=== PATIENT | male | born 1995 | race African-American/Black ===

== ENCOUNTER 2022-01-01 22:40 | Emergency (ER) | payer BC, SELFPAY ==
[2022-01-01 22:46] VITALS: BP 145/84; PULSE 109; RESP 18; TEMP 37.2; O2SAT 100
--- NOTE | 2022-01-01 23:10 | ED.DENTAL ---
HPI - Dental/Oral General Chief complaint: Dental/Oral Stated complaint: throat Time Seen by Provider: 01/01/22 22:56 History of Present Illness HPI Narrative: Patient reports ports sore throat for 3 days. Denies fever. States having difficulty eating and drinking due to the pain. No known ill contacts. Denies sinus congestion, postnasal drip, cough, or earache. Related Data Allergies Allergy/AdvReac Type Severity Reaction Status Date / Time No Known Drug Allergies Allergy Unknown Other Verified 01/01/22 22:49 Review of Systems Review of Systems: CONSTITUTIONAL: Denies fever, chills, or sweats. EYES: Denies visual changes, redness, or discharge. ENT: reports sore throat CARDIOVASCULAR: Denies chest pain, palpitations, or edema. RESPIRATORY: Denies cough or dyspnea. GASTROINTESTINAL: Denies abdominal pain, nausea, vomiting, or diarrhea. GENITOURINARY: Denies dysuria or hematuria. SKIN: Denies rash or itching. MUSCULOSKELETAL: Denies back pain, joint pain, or myalgia. NEUROLOGIC: Denies headache, numbness, dizziness, or weakness. PSYCHIATRIC: Denies anxiety or depression. Exam Narrative: GENERAL: Well-appearing, well-nourished, and in no acute distress. HEAD: Normocephalic, atraumatic. EYES: PERRLA and EOMI. ENT: Nares clear, no rhinorrhea or epistaxis. Mucous membranes moist. Bilateral TMs pearly larsen nonbulging. Tonsillar columns +4, erythematous, swollen, with white purulent discharge NECK: Supple. Anterior cervical lymphadenopathy. No carotid bruits or JVD CHEST: Clear to auscultation. No respiratory distress. No wheezes rales or rhonchi HEART: Regular rate and rhythm. No murmur heard. Normal peripheral pulses. ABDOMEN: Soft, nontender, nondistended, normal active bowel sounds. EXTREMITIES: Normal range of motion. No edema. SKIN: Warm, dry, no rash. NEURO: No focal deficits. Alert and oriented x3. PSYCH: Normal mood and affect. Course Vital Signs Vital signs: Vital Signs Temperature 37.2 C 01/01/22 22:46 Pulse Rate 109 H 01/01/22 22:46 Respiratory Rate 18 01/01/22 22:46 Blood Pressure 145/84 H 01/01/22 22:46 Pulse Oximetry 100 01/01/22 22:46 Temperature 37.2 C 01/01/22 22:46 Pulse Rate 109 H 01/01/22 22:46 Respiratory Rate 18 01/01/22 22:46 Blood Pressure 145/84 H 01/01/22 22:46 Pulse Oximetry 100 01/01/22 22:46 MDM - Dental/Oral MDM Narrative Medical decision making narrative: 27-year-old male presented to the emergency room with sore throat for 3 days. Strep test shows positive for group A strep. Lab Data Labs: Lab Results 01/01/22 Range/Units 23:58 Monoscreen Pending Strep Screen Positive Group A Strep *(Reference Range: Negative)* Discharge Plan Discharge Clinical Impression: Strep sore throat Patient Disposition: Home, Self-Care Condition: Stable Instructions: Antibiotic Form Prescriptions: New amoxicillin 500 mg tablet 500 mg PO Q12H Qty: 20 RF: 0 Follow-up/Referrals: PHYSICIAN NOT ON STAFF,NONSTAFF [Primary Care Provider] - Stand Alone Forms: Work/School Release IP Time of Disposition: 00:38
[2022-01-02] MEDS: KETOROLAC (*BKC) 60 MG/2 ML VIAL IM (00:04)
[2022-01-02 00:46] LABS: Monoscreen Negative (Negative)
[2022-01-02 00:47] LABS: Negative Monotest Control Negative (Negative); Positive Monotest Control Positive (Positive)
[2022-01-02 01:00] VITALS: PULSE 100; RESP 18; O2SAT 98
== END 2022-01-02 01:00 | disposition home or self-care (01) ==
PROVIDERS: Emergency Provider Nurse Practitioner Family
DX: J02.0 Streptococcal pharyngitis (principal)
CPT/HCPCS: 36415; 86308; 87880; 96372; 99284; J1100; J1885

== ENCOUNTER 2022-08-21 01:02 | Emergency (ER) | payer BC, SELFPAY ==
[2022-08-21] VITALS (8 sets, daily range): BP systolic 116–143; BP diastolic 70–82; PULSE 90–98; RESP 16–18; TEMP 36.9; O2SAT 97–100
--- NOTE | ~2022-08-21 | CT_ITS ---
EXAMINATION: CT soft tissue neck w con DATE: 08/21/2022 02:24 INDICATION: Peritonsillar abscess. Swelling and pain. TECHNIQUE: Computed tomography (CT) of the neck was performed with 75 mL Omnipaque-350 intravenous co ntrast. The dose-length product was 551.44 mGy-cm. COMPARISON: None FINDINGS: Lung bases are unremarkable. There is prominent appearance to the tonsillar pillars bilater ally with mild effacement of the oropharynx. Tonsils are more prominent on the right. There is a sept ated fluid collection in the right tonsillar pillar measuring 11 x 10 mm, compatible with peritonsill ar abscess. There is mucosal edema of the oropharynx and hypopharyngeal mucosa which extends to the l evel of the area epiglottic folds. There is a small 3 mm area of low attenuation in the left tonsilla r pillar, suspicious for developing abscess. There are mucous retention cyst in the paranasal sinuses . There are are cervical lymph node enlargement, likely reactive. Lung apices are normal. No abnormal intracranial enhancement. IMPRESSION: 1. Enlarged bilateral tonsillar pillars, right greater than left. There is an 11 mm peritonsillar abs cess on the right and possible 3 mm abscess on the left. 2: Prominent mucosal edema of the oropharynx and hypopharyngeal mucosa extending inferiorly to the ar yepiglottic folds. Reviewed, dictated and finalized at location A. IMPRESSION: 1. Enlarged bilateral tonsillar pillars, right greater than left. There is an 1 1 mm peritonsillar abscess on the right and possible 3 mm abscess on the left. 2: Prominent mucosal edema of the oropharynx and hypopharyngeal mucosa extendin g inferiorly to the aryepiglottic folds.
--- NOTE | 2022-08-21 01:26 | ED.GENADULT ---
HPI - General Adult General Chief complaint: Unspecified <Rupinder Alonzo PA-C - Last Filed: 08/21/22 04:08> Stated complaint: sore throat <Rupinder Alonzo PA-C - Last Filed: 08/21/22 04:08> Time Seen by Provider: 08/21/22 01:17 <Rupinder Alonzo PA-C - Last Filed: 08/21/22 04:08> Source: patient <Rupinder Alonzo PA-C - Last Filed: 08/21/22 04:08> Mode of arrival: ambulatory <Rupinder Alonzo PA-C - Last Filed: 08/21/22 04:08> Limitations: no limitations <Rupinder Alonzo PA-C - Last Filed: 08/21/22 04:08> History of Present Illness HPI narrative: This is a 27-year-old male that presents to the emergency department for sore throat noted since last night. Reports it has made it difficult for him to swallow. He has not taken anything for pain. He has not had any fever or vomiting. <Rupinder Alonzo PA-C - Last Filed: 08/21/22 04:08> Related Data Allergies/adverse reactions: Allergies Allergy/AdvReac Type Severity Reaction Status Date / Time No Known Drug Allergies Allergy Unknown Other Verified 01/01/22 22:49 <Rupinder Alonzo PA-C - Last Filed: 08/21/22 04:08> Review of Systems Review of Systems: CONSTITUTIONAL: Denies fever ENT: Reports sore throat <Rupinder Alonzo PA-C - Last Filed: 08/21/22 04:08> All systems reviewed & are unremarkable except as noted in HPI and below <Rupinder Alonzo PA-C - Last Filed: 08/21/22 04:08> [facility] Past Medical History Medical History: Medical History (Updated 08/21/22 @ 03:08 by Rupinder Alonzo PA-C) No active medical problems <Rupinder Alonzo PA-C - Last Filed: 08/21/22 04:08> Social History Social History: Social History (Updated 08/21/22 @ 01:27 by Rupinder Alonzo PA-C) Substance use: never <Rupinder Alonzo PA-C - Last Filed: 08/21/22 04:08> Exam Narrative: GENERAL: Well-appearing, well-nourished, and in no acute distress. HEAD: Normocephalic, atraumatic. EYES: EOMI. ENT: Nares clear, no rhinorrhea or epistaxis. Mucous membranes moist. Oropharynx with moderate tonsillar hypertrophy and exudate (R>L), no other lesions. Uvula is midline. NECK: Supple. No adenopathy or masses CHEST: Clear to auscultation. No respiratory distress. No wheezes rales or rhonchi HEART: Regular rate and rhythm. No murmur heard. Normal peripheral pulses. EXTREMITIES: Normal range of motion. No edema. SKIN: Warm, dry, no rash. NEURO: No focal deficits. Alert and oriented x3. PSYCH: Normal mood and affect <Rupinder Alnozo PA-C - Last Filed: 08/21/22 04:08> Course Reevaluation(s) Reevaluation #1: Patient feels markedly improved after IV antibiotics and Decadron. He reports he cannot speak earlier in the evening but he is now speaking with normal phonation. Tolerating secretions without issue and feels as if he can swallow without issue as well. I discussed the case with Dr. Pettit the ENT here. He reports that the patient should be discharged on Augmentin as well as Medrol Dosepak and he can see him in clinic tomorrow for drainage of the abscess. Patient feels this is an appropriate treatment plan and is comfortable being discharged. <Seth Armas MD - Last Filed: 08/21/22 08:53> Date: 08/21/22 <Seth Armas MD - Last Filed: 08/21/22 08:53> Time: 08:48 <Seth Armas MD - Last Filed: 08/21/22 08:53> Vital Signs Vital signs: Vital Signs Temperature 98.4 F 08/21/22 01:06 Pulse Rate 98 08/21/22 01:06 Respiratory Rate 16 08/21/22 01:06 Blood Pressure 143/82 H 08/21/22 01:06 Pulse Oximetry 99 08/21/22 01:06 Oxygen Delivery Room Air 08/21/22 01:06 Temperature 98.4 F 08/21/22 01:06 Pulse Rate 98 08/21/22 01:06 Respiratory Rate 16 08/21/22 01:06 Blood Pressure 118/70 08/21/22 06:02 Pulse Oximetry 99 08/21/22 06:02 Oxygen Delivery Room Air 08/21/22 01:06 <Rupinder Alonzo PA-C - Last Filed: 08/21/22 04:08> Vital Signs Temperatu
[2022-08-21 01:33] LABS: Basophils Percent Auto 0.2 % (0.2-1.2); Eosinophils Percent Auto 0.4 % (0-4.4); Hematocrit 48.4 % (42.0-52.0); Hemoglobin 15.8 g/dL (14.0-18.0); Immature Granulocyte Absolute 0.02 K/mm3 (0.00-0.031); Immature Granulocyte Percent A 0.2 % (0-0.5); Lymphocytes Absolute Auto 1.53 K/mm3 (0.9-3.2); Lymphocytes Percent Auto 16.9 % (18.3-44.2); Mean Corpuscular HGB Conc 32.6 g/dl (32-36); Mean Corpuscular Hemoglobin 30.2 pg (26-34); Mean Corpuscular Volume 92.5 fl (80-100); Monocytes Absolute Auto 0.9 K/mm3 (0.1-0.6); Monocytes Percent Auto 10.2 % (2.6-8.5); Neutrophils Absolute Auto 6.5 K/mm3 (1.3-6.7); Neutrophils Percent Auto 72.1 % (45.5-73.1); Platelet Count Result 215 k/mm3 (150-375); Red Blood Count 5.23 M/mm3 (4.6-6.20); White Blood Count 9.1 K/mm3 (4.5-10.0)
[2022-08-21 01:43] LABS: Anion Gap 11 mmol/L (8-16); Blood Urea Nitrogen 9 mg/dL (9-20); Calcium 9.2 mg/dL (8.4-10.2); Carbon Dioxide 25 mmol/L (22-30); Chloride 104 mmol/L (98-107); Estimated CRCL calculation 130 ml/min; Estimated Glomerular Filt Rate > 60; Glucose 107 mg/dL (65-110); Potassium 3.8 mmol/L (3.4-5.0); Sodium 140 mmol/L (137-145)
[2022-08-21] MEDS: KETOROLAC 15 MG/ML VIAL (*BKC) IV PUSH (02:02)
[2022-08-21] MEDS: AMPICILLIN SULB 3 GM/NS 100 ML 3 GM/100 ML VIAL IVPB ×2 (02:06→08:38)
[2022-08-21] MEDS: SODIUM CHLORIDE 0.9% IV 1,000 ML 999 ML IV CONT (02:06)
--- NOTE | 2022-08-21 07:22 | PC.NURSE ---
Per EDP Cuauhtemoc administer ampicillin Q6H. Last administered at 0230.
== END 2022-08-21 09:41 | disposition home or self-care (01) ==
PROVIDERS: Physician Assistant; Emergency Provider Emergency Medicine
DX: J36 Peritonsillar abscess (principal); B95.0 Streptococcus, group A, as the cause of diseases classified elsewhere
CPT/HCPCS: 36415; 70491; 80048; 85025; 87880; 96361; 96365; 96366; 96367; 96375; 99284; J0131; J0295; J1100; J1885; J7030; Q9967

== ENCOUNTER 2022-12-18 23:27 | Emergency (ER) | payer BC, SELFPAY ==
--- NOTE | ~2022-12-18 | XR_ITS ---
Clinical Indication: Shortness of breath PA and lateral views of the chest: Comparison: 10/08/2017 Findings: The lungs are clear, without evidence of focal consolidation or pleural effusion. Cardiome diastinal silhouette is within normal limits. Bones and soft tissues are unremarkable. Impression: Normal chest. Reviewed, dictated and finalized at [facility]. [employer]TER Impression: Normal chest.
[2022-12-18 23:29] VITALS: BP 150/86; PULSE 122; RESP 18; TEMP 37.3; O2SAT 98
[2022-12-19] VITALS (7 sets, daily range): BP systolic 111–134; BP diastolic 72–97; PULSE 87–110; RESP 16–20; O2SAT 98–100
--- NOTE | 2022-12-19 00:11 | ED.GENADULT ---
HPI - General Adult General Chief complaint: Asthma Stated complaint: Asthma flair up, sob Time Seen by Provider: 12/19/22 00:03 History of Present Illness HPI narrative: Patient [id number] gentleman who presents the emergency department with chief complaint of shortness of breath. The patient reports he has history of asthma and reports that in the last week he [place] the [place] with his [place] patient reports that he started having increasing shortness of breath did not have any prednisone at home has been using his inhaler. The patient reports that he is almost out of his inhaler at home and reports that he does not have any steroids. The patient reports no prior hospitalizations for asthma reports no previous intubation or BiPAP requirement. Related Data Allergies Allergy/AdvReac Type Severity Reaction Status Date / Time No Known Drug Allergies Allergy Unknown Other Verified 08/22/22 15:00 Review of Systems Review of Systems: A 10 system review of systems was completed on the patient and is negative except for what is stated in the HPI. Nursing and ancillary documentation was reviewed. PMFSH Past Medical History Medical History No active medical problems Family History Family History Mother Asthma Grandparent Asthma Other Asthma Social History Social History Smoking status: Never smoker Alcohol intake: never Substance use: never Exam Narrative: GENERAL: Well-appearing, well-nourished, and in no acute distress. HEAD: Normocephalic, atraumatic. EYES: PERRLA and EOMI. ENT: Nares clear, no rhinorrhea or epistaxis. Mucous membranes moist. NECK: Supple. CHEST: Clear to auscultation. No respiratory distress. HEART: Regular rate and rhythm. No murmur heard. Normal peripheral pulses. ABDOMEN: Soft, nontender, nondistended, normal active bowel sounds. EXTREMITIES: Normal range of motion. No edema. SKIN: Warm, dry, no rash. NEURO: No focal deficits. Alert and oriented x3. PSYCH: Normal mood and affect. Course Vital Signs Vital signs: Vital Signs Temperature 37.3 C 12/18/22 23:29 Pulse Rate 122 H 12/18/22 23:29 Respiratory Rate 18 12/18/22 23:29 Blood Pressure 150/86 H 12/18/22 23:29 Pulse Oximetry 98 12/18/22 23:29 Oxygen Delivery Room Air 12/18/22 23:29 Temperature 37.3 C 12/18/22 23:29 Pulse Rate 106 H 12/19/22 02:46 Respiratory Rate 18 12/19/22 02:46 Blood Pressure 111/72 12/19/22 02:46 Pulse Oximetry 100 12/19/22 02:46 Oxygen Delivery Room Air 12/19/22 00:07 Medical Decision Making MDM Narrative Medical decision making narrative: Differential diagnosis includes asthma, bronchospasm, upper respiratory infection. Vital Signs Vital Signs: Vital Signs Temperature 37.3 C 12/18/22 23:29 Pulse Rate 122 H 12/18/22 23:29 Respiratory Rate 18 12/18/22 23:29 Blood Pressure 150/86 H 12/18/22 23:29 Pulse Oximetry 98 12/18/22 23:29 Oxygen Delivery Room Air 12/18/22 23:29 Temperature 37.3 C 12/18/22 23:29 Pulse Rate 106 H 12/19/22 02:46 Respiratory Rate 18 12/19/22 02:46 Blood Pressure 111/72 12/19/22 02:46 Pulse Oximetry 100 12/19/22 02:46 Oxygen Delivery Room Air 12/19/22 00:07 Discharge Plan Discharge Clinical Impression: Asthma with acute exacerbation Patient Disposition: Home, Self-Care Condition: Stable Instructions: Antibiotic Form, Asthma (ED) Prescriptions: New albuterol sulfate 90 mcg/actuation HFA aerosol inhaler 2 puff inhalation QID PRN (Reason: shortness of breath or wheezing) Qty: 8.5 0RF prednisone 20 mg tablet 40 mg PO DAILY 5 Days Qty: 10 0RF benzonatate 200 mg capsule 200 mg PO TID PRN (Reason: cough) Qty: 21 0RF No Action oxycodone 5 mg tablet 5 mg
[2022-12-19] MEDS: predniSONE 20 MG TABLET 60 MG PO (00:18)
[2022-12-19] MEDS: ALBUTEROL SULFATE NEB 2.5 MG/3 ML INH INHALATION ×2 (00:26→01:48)
[2022-12-19] MEDS: IPRATROPIUM BR 0.02% INH SOLN 0.5 MG/2.5 ML VIAL INHALATION ×2 (00:27→01:49)
[2022-12-19] MEDS: BENZONATATE 100 MG CAPSULE 200 MG PO (01:31)
== END 2022-12-19 02:53 | disposition home or self-care (01) ==
PROVIDERS: Emergency Provider Emergency Medicine
DX: J45.901 Unspecified asthma with (acute) exacerbation (principal)
CPT/HCPCS: 71046; 94640; 99283; 99284; A9270; J7512

== ENCOUNTER 2024-01-06 01:28 | Emergency (ER) | payer BC, SELFPAY ==
[2024-01-06] VITALS (9 sets, daily range): BP systolic 102–122; BP diastolic 45–73; PULSE 82–111; RESP 15–25; TEMP 38.3; O2SAT 94–100
--- NOTE | ~2024-01-06 | CT_ITS ---
EXAMINATION: CTA chest PE protocol DATE: 01/06/2024 03:23 INDICATION: Chest pain and shortness of breath TECHNIQUE: Computed tomography (CT) pulmonary angiogram of the chest was performed with 100 mL Omnipa que-350 intravenous contrast. Additional 3D reconstructions utilizing coronal maximum intensity proje ction (MIP) were performed. Automated exposure control and iterative reconstruction technique were em ployed. The dose-length product was 917.00 mGy-cm. COMPARISON: None FINDINGS: Suboptimal contrast opacification of the pulmonary arteries which decreases sensitivity in the smalle r subsegmental pulmonary arteries. No evident pulmonary embolism. Patchy consolidation and surroundin g groundglass opacities in the right lower lobe consistent with pneumonia. No pulmonary edema, pleura l effusion or pneumothorax. Heart size is normal. No pericardial effusion. Thoracic aorta is normal i n caliber. 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 Mild t horacic spondylosis. IMPRESSION: 1. Right lower lobe pneumonia. No pulmonary embolism. Reviewed, dictated and finalized at location A.
--- NOTE | ~2024-01-06 | XR_ITS ---
EXAMINATION: XR chest 2V DATE: 01/06/2024 02:04 INDICATION: Shortness of breath and cough TECHNIQUE: PA and lateral views of the chest were obtained. COMPARISON: Chest radiograph dated 12/19/2022 FINDINGS: Airspace opacities in the posterior basilar right lower lobe. No pulmonary edema, pleural effusion or pneumothorax. The cardiomediastinal silhouette is normal. Visualized bones and soft tissues are unre markable. IMPRESSION: 1. Right lower lobe pneumonia. Reviewed, dictated and finalized at location A.
--- NOTE | 2024-01-06 01:29 | ECG_ITS ---
Measurements Intervals [place] Rate: 106 P: 38 VA: 143 QRS: 33 QRSD: 104 T: -4 QT: 315 QTc: 420 Interpretive Statements SINUS TACHYCARDIA NONSPECIFIC ST & T-WAVE ABNORMALITY- INFERIOR LEADS BASELINE WANDER- AVL, AVF, V3-V6 ABNORMAL ECG NO PREVIOUS ECG AVAILABLE FOR COMPARISON Electronically Signed On 01-06-2024 7:56:03 CDT by Renato Bennett D.O.
[2024-01-06] MEDS: ACETAMINOPHEN 500 MG TABLET 1000 MG PO (02:11)
[2024-01-06] MEDS: SODIUM CHLORIDE 0.9% IV 1,000 ML 999 ML IV CONT (02:12)
[2024-01-06 02:14] LABS: Basophils Percent Auto 0.1 % (0.2-1.2); Hematocrit 42.7 % (42.0-52.0); Hemoglobin 14.2 g/dL (14.0-18.0); Immature Granulocyte Absolute 0.02 K/mm3 (0.00-0.031); Immature Granulocyte Percent A 0.2 % (0-0.5); Lymphocytes Absolute Auto 1.46 K/mm3 (0.9-3.2); Lymphocytes Percent Auto 15.7 % (18.3-44.2); Mean Corpuscular HGB Conc 33.3 g/dl (32-36); Mean Corpuscular Hemoglobin 30.7 pg (26-34); Mean Corpuscular Volume 92.4 fl (80-100); Mean Platelet Volume 9.8 fl (7.4-10.4); Monocytes Absolute Auto 0.9 K/mm3 (0.1-0.6); Neutrophils Absolute Auto 6.9 K/mm3 (1.3-6.7); Platelet Count Result 168 k/mm3 (150-375); Red Blood Count 4.62 M/mm3 (4.6-6.20); Red Cell Distribution Width 13.7 % (11.5-14.5); White Blood Count 9.3 K/mm3 (4.5-10.0)
[2024-01-06 02:26] LABS: Alanine Aminotransferase 49 U/L (6-50); Albumin Level 3.9 g/dL (3.5-5.1); Alkaline Phosphatase 65 U/L (38-126); Anion Gap 7 mmol/L (8-16); Aspartate Amino Transferase 45 U/L (17-59); Bilirubin,Total 0.4 mg/dL (0.2-1.3); Blood Urea Nitrogen 11 mg/dL (9-20); Calcium 8.6 mg/dL (8.4-10.2); Carbon Dioxide 25 mmol/L (22-30); Chloride 105 mmol/L (98-107); Estimated CRCL calculation 160 ml/min; Estimated Glomerular Filt Rate > 60; Glucose 105 mg/dL (65-110); Potassium 3.3 mmol/L (3.4-5.0); Sodium 137 mmol/L (137-145)
[2024-01-06 02:34] LABS: Influenza A QL RT-PCR Negative (Negative); Influenza B QL RT-PCR Negative (Negative); RSV RNA, RT-PCR Negative (Negative); SARS-CoV-2 RNA PCR Negative (Negative)
[2024-01-06 02:37] LABS: Troponin I < 0.012 ng/mL (0.000-0.034)
--- NOTE | 2024-01-06 02:40 | ED.GENADULT ---
HPI - General Adult General Chief complaint: Shortness of Breath/Dyspnea Stated complaint: asthma flare up since Monday Time Seen by Provider: 01/06/24 02:30 History of Present Illness HPI narrative: Patient is a 29-year-old male who presents to the emergency department this morning complaining of chest tightness and shortness of breath. Patient admits that he does have a history of asthma which she has had since he was a kid. Patient uses 2 inhalers at home as needed and saw his primary care physician Monday of this week and was placed on a 5 day course of oral steroids. Patient states that the steroids have not improved his symptoms and he finally decided to come to the emergency department for further evaluation. Patient denies any previous hospitalizations or intubations secondary to his asthma and is currently denying any sharp chest. Patient did have a low-grade in triaged. Patient denies any sick contacts at home or exposure to known COVID or influenza. He denies any fevers at home prior to today and denies any chills. There are no other modifying, alleviating, or precipitating factors at this time. Related Data Allergies Allergy/AdvReac Type Severity Reaction Status Date / Time No Known Drug Allergies Allergy Unknown Other Verified 08/22/22 15:00 Review of Systems Review of Systems: All systems are reviewed and are negative unless stated otherwise in the HPI. [facility] Past Medical History Medical History No active medical problems Family History Family History Mother Asthma Grandparent Asthma Other Asthma Social History Social History Smoking status: Never smoker Alcohol intake: never Substance use: never Comments Past medical history significant for asthma, denies any significant surgical history. Exam Narrative: General: Alert, awake, afebrile, in no acute distress, active dry cough. HEENT: PERRL, no rhinorrhea, no post nasal drip, oropharynx clear. Neck: Trachea midline, no JVD, no lymphadenopathy. Cardiovascular: Regular rate and rhythm, no murmurs, rubs or gallops, no peripheral edema. Respiratory: Clear to auscultation bilaterally, no tachypnea, no wheezing, no rhonchi, no rubs, no respiratory distress. Abdomen: Soft, nontender, nondistended, no rebound, no guarding, no peritoneal signs. Musculoskeletal: No joint swelling or deformity, normal muscle tone. Skin: No rashes or petechia, no signs of infection. Psychiatric: Alert and oriented, normal behavior and judgment for situation. Neurological: Alert and oriented to person, place, and time. Follows all commands. No focal deficits, speech is clear and fluent. Course Vital Signs Vital signs: Vital Signs Temperature 101.0 F H 01/06/24 01:39 Pulse Rate 111 H 01/06/24 01:39 Respiratory Rate 22 H 01/06/24 01:39 Blood Pressure 107/61 01/06/24 01:39 Pulse Oximetry 98 01/06/24 01:39 Temperature 101.0 F H 01/06/24 01:39 Pulse Rate 82 01/06/24 05:31 Respiratory Rate 25 H 01/06/24 05:31 Blood Pressure 111/73 01/06/24 05:31 Pulse Oximetry 97 01/06/24 05:31 Oxygen Delivery Room Air 01/06/24 03:54 Medical Decision Making MDM Narrative Medical decision making narrative: The patient was evaluated by myself in the emergency department. History is obtained from patient who is an independent historian and physical exam was performed. External medical records were reviewed at this time. IV was established and pertinent tests were ordered. Patient was administered two a [id number] DuoNeb breathing treatment. EKG was obtained which revealed a tachycardia rate of 106 beats per minute with T-wave inversion in lead 3. EKG was independently interpreted by me and is currently pending official cardiology read. Laboratory results obtain
[2024-01-06] MEDS: IPRATROPIUM 0.5 MG/ALBUTEROL SULFATE 2.5 MG AMPUL.NEB 3 ML INHALATION (02:51)
[2024-01-06] MEDS: POTASSIUM CHLORIDE 20 MEQ ER TABLET PO (03:28)
== END 2024-01-06 05:46 | disposition home or self-care (01) ==
PROVIDERS: Emergency Medicine; Physician Assistant; Emergency Provider Emergency Medicine
DX: J18.9 Pneumonia, unspecified organism (principal); E87.6 Hypokalemia; R06.02 Shortness of breath; Z20.822 Contact with and (suspected) exposure to COVID-19; R00.0 Tachycardia, unspecified; R94.31 Abnormal electrocardiogram [ECG] [EKG]
CPT/HCPCS: 36415; 71046; 71275; 80053; 84484; 85025; 87637; 93005; 94640; 96360; 99284; A9270; J7030; Q9967

== ENCOUNTER 2024-09-18 15:18 | Emergency (ER) | payer BC, SELFPAY ==
--- NOTE | ~2024-09-18 | XR_ITS ---
EXAMINATION: XR chest 2V 09/18/2024 15:36 INDICATION: Cough PROCEDURE: 2 view chest COMPARISON: 01/06/2024 FINDINGS: The lungs are clear. The cardiomediastinal silhouette is within normal limits. There are no pleural effusions. There is no pneumothorax suspected. IMPRESSION: 1: NO ACUTE CARDIOPULMONARY DISEASE. Reviewed, dictated and finalized at location [facility]
[2024-09-18 15:26] VITALS: BP 159/88; PULSE 86; RESP 17; TEMP 36.7; O2SAT 100
--- NOTE | 2024-09-18 15:27 | ED.URI ---
HPI - URI/Sore Throat General Chief Complaint: Upper Respiratory Infection Stated Complaint: Sinus Time Seen by Provider: 09/18/24 15:25 Source: patient Mode of arrival: ambulatory Limitations: no limitations History of Present Illness HPI Narrative: Tim is a 29-year-old male patient presenting to the clinic today with complaints of cough, feeling as though he is short of breath with some chest tightness, runny nose, and chest congestion x3 days. He was seen by his primary care doctor yesterday and was given prescription for albuterol inhaler, Symbicort, and prednisone is space does have history of asthma. States he was wheezing yesterday. They did not do a chest x-ray at that time. He states he woke up this morning with chest tightness and increased shortness of breath and contacted the primary care provider and they told him to come into the urgent care and have an evaluation and a chest x-ray completed. He denies any known fever but has felt sweaty. Cough is nonproductive but is blowing out some yellow nasal drainage at times. History of pneumonia in December MD elicited complaint: cough, sore throat, nasal congestion and other (Shortness of breath, chest tightness) Related Data Home Medications Medication Instructions Recorded Confirmed budesonide-formoterol HFA 160 2 puff inhalation BID 09/18/24 09/18/24 mcg-4.5 mcg/actuation aerosol inhaler prednisone 20 mg tablet 20 mg PO DAILY 09/18/24 09/18/24 Allergies Allergy/AdvReac Type Severity Reaction Status Date / Time No Known Drug Allergies Allergy Unknown Other Verified 09/18/24 15:20 Review of Systems Review of Systems: Pertinent positives per HPI. Patient denies any fever, chills, rash, headache, visual changes, dizziness, cough, shortness of breath, chest pain, palpitations, nausea, vomiting, diarrhea, constipation, abdominal pain, or any urinary issues. [facility] Past Medical History Medical History No active medical problems Family History Family History Mother Asthma Grandparent Asthma Other Asthma Social History Social History Smoking status: Never smoker Alcohol intake: never Substance use: never Comments At the time of my signature, I reviewed and agree with the nursing past medical, surgical, social, and family history. There is no relevant family history pertinent to the patient complaint. Exam Narrative: General: Well-developed, well nourished, in no apparent distress Head: Normocephalic, atraumatic Eyes: Pupils equally round and reactive to light bilaterally, EOM intact, sclera and conjunctive clear, no discharge, lids normal Ears: TMs intact and clear, ear canals clear, no drainage, grossly hearing normal. Nose: Nares patent, no discharge, no inflammation, no sinus tenderness. Mouth: Oral pharynx without lesions or masses, good dentition, MMM. Neck: Supple, trachea midline, no enlargement of anterior or posterior cervical nodes, no thyroid masses or goiter palpable. Cardio: Regular rate and rhythm, s1 and s2 normal, no murmur appreciated. Resp: Diminished in the bases otherwise clear, no rhonchi, rales, wheezing or rubs Course Course Emergency Course: Portions of this record may have been created with voice recognition software. Level of Care: Express Care Visit Vital Signs Vital signs: Vital Signs Temperature 36.7 C 09/18/24 15:26 Pulse Rate 86 09/18/24 15:26 Respiratory Rate 17 09/18/24 15:26 Blood Pressure 159/88 H 09/18/24 15:26 Pulse Oximetry 100 09/18/24 15:26 Oxygen Delivery Room Air 09/18/24 15:26 Temperature 36.7 C 09/18/24 15:26 Pulse Rate 86 09/18/24 15:26 Respiratory Rate 17 09/18/24 15:26 Blood Pressure 159/88 H 09/18/24 15:26 Pulse Oximetry 100 09/18/24 15:26 Oxygen Delivery Room Air 09/18/24 15:26 Vital signs reviewed MDM - URI/Sore Throat MDM Narrative Medical decision making narrative: At the time of visit patient is resting comfortably on the exam table. Patient appears to be nontoxic. Diagnostics: Chest x-rays negative for any acute cardiopulmonary process Plan: Patient is able speak in full sentences and his oxygen saturations is 100% on room air. I suspect patient has asthma exacerbation/bronchitis. Prescription for azithromycin as patient is having sputum color changes and higher dose prednisone was sent to the pharmacy. Patient may take Mucinex. Supportive measures were discussed with the patient and they voiced understanding discharge instructions and agrees to treatment plan. Return precautions reviewed Differential Diagnosis Differential diagnosis: Likely upper respiratory infection, otitis media, sinusitis, viral infection, bronchitis, influenza, pharyngitis and other (COVID) Discharge Plan Discharge Clinical Impression: Asthma Qualifiers: Asthma severity: mild Asthma persistence: intermittent Asthma complication type: unspecified Qualified Code(s): J45.20 - Mild intermittent asthma, uncomplicated Patient Disposition: Home, Self-Care Condition: Stable Instructions: Antibiotic Form, Asthma (ED) Additional Instructions: Take prescription medications only as prescribed-increase prednisone to 50 mg daily x5 days, start azithromycin as prescribed Increase fluids and stay well hydrated Tylenol/motrin for pain/fever Flonase and OTC antihistamines as directed Vicks vapor rub to open sinuses Sinus rinses for congestion Cepacol spray, cough drops, throat lozenges, warm tea with honey/lemon, gargle salt water to soothe throat BRAT diet for diarrhea Clear liquids x 24 hours then advance as tolerated for nausea/vomiting Go to the ED if you develop a worsening in your condition- high fever not controlled by Tylenol or Motrin, dehydration, weakness, lethargy, shortness of breath, or chest pain. Follow up with your PCP in 3-5 days if symptoms persist. Prescriptions: New prednisone 50 mg tablet 50 mg PO DAILY 5 Days Qty: 5 0RF azithromycin 250 mg tablet See Rx Instructions .ROUTE .COMPLEX Qty: 6 0RF Rx Instructions: For 250 mg dose pack: take 500 mg today (day 1), then 250 mg for 4 days (days 2-5) No Action prednisone 20 mg tablet 20 mg PO DAILY budesonide-formoterol 160-4.5 mcg/actuation HFA aerosol inhaler 2 puff INHALATION BID albuterol sulfate 90 mcg/actuation HFA aerosol inhaler 2 puff inhalation QID PRN (Reason: shortness of breath or wheezing) Qty: 8.5 0RF Follow-up/Referrals: PHYSICIAN,STANDPIPE TENDER [Primary Care Provider] - Time of Disposition: 15:55 Quality NIHSS Nursing Documentation ED NIHSS nursing documentation: reviewed/agree
== END 2024-09-18 16:00 | disposition home or self-care (01) ==
PROVIDERS: Emergency Provider Nurse Practitioner Family
DX: J45.20 Mild intermittent asthma, uncomplicated (principal)
CPT/HCPCS: 71046; 99213; G0463